=== PATIENT | male | born 1945 | race Caucasian/White ===

== ENCOUNTER → 2021-05-21 | Day surgery (SDC) | payer MEDICARE, OTHER ==
[~2021-05-21] VITALS: Ht 188 cm; Wt 56.8 kg
[~2021-05-21] MED LIST: ONDANSETRON ODT8 MG PO; PANTOPRAZOLE SO40 MG PO; PAROXETINE 10MG10 MG PO
[2021-05-21 10:34] LABS: HCT 48.6 % (42.0-52.0); HGB 17.4 g/dl (13.2-18.0); MCH 31.9 pg (25.0-31.0); MCHC 35.8 g/dL (32.0-36.0); MCV 89.2 fL (78.0-100.0); MPV 9.7 fL (6.0-9.5); RBC 5.45 M/uL (4.70-6.00); WBC 13.7 K/uL (4.0-10.5)
[2021-05-21 11:13] LABS: ALBUMIN 3.6 g/dL (3.4-5.0); BILIRUBIN - TOTAL 0.9 mg/dL (0.2-1.0); BUN/CREAT RATIO (CALC) 24.7 RATIO; CREATININE 0.85 mg/dL (0.67-1.17); TOTAL PROTEIN 6.6 g/dL (6.4-8.2)
== END | disposition home or self-care (01) ==
LOC: FAS 09:33
PROVIDERS: Surgery
DX: K29.50 Unspecified chronic gastritis without bleeding (principal); K21.9 Gastro-esophageal reflux disease without esophagitis; F17.210 Nicotine dependence, cigarettes, uncomplicated; Z88.5 Allergy status to narcotic agent; Z79.899 Other long term (current) drug therapy
CPT/HCPCS: 36415; 80053; J2250; J2704; J7120; Q9967

== ENCOUNTER 2021-07-02 13:08 | Emergency (ER) | payer MEDICARE, OTHER ==
[2021-07-02] MEDS ORDERED: ONDANSETRON HCL4 MG PO (16:48)
[2021-07-02] MEDS ORDERED: PERCOCET 5-3251 EACH PO (16:48)
== END 2021-07-02 17:27 | disposition home or self-care (01) ==
LOC: FER 13:08
DX: S32.019A Unspecified fracture of first lumbar vertebra, initial encounter for closed fracture (principal); F17.210 Nicotine dependence, cigarettes, uncomplicated; W06.XXXA Fall from bed, initial encounter; Y93.89 Activity, other specified
CPT/HCPCS: 72131

== ENCOUNTER 2021-07-19 06:49 | Inpatient (IN) | payer MEDICARE, OTHER ==
[~2021-07-19] VITALS: Ht 188 cm; Wt 59.9 kg
[~2021-07-19 06:49] MED LIST changes: +ONDANSETRON HCL4 MG PO; +PERCOCET 5-3251 EACH PO
[2021-07-19 07:33] LABS: BASOPHIL 0.2 % (0-2); EOSINOPHIL 0 % (0-7); HCT 42.8 % (42.0-52.0); HGB 14.3 g/dl (13.2-18.0); LYMPHOCYTE 3.7 % (15-48); MCH 30.8 pg (25.0-31.0); MCHC 33.4 g/dL (32.0-36.0); MCV 92.2 fL (78.0-100.0); MONOCYTE 2.9 % (0-12); MPV 9.1 fL (6.0-9.5); NRBC 0; PLT 413 K/uL (150-400); RBC 4.64 M/uL (4.70-6.00); RDW 13.2 % (11.5-14.0); WBC 20.3 K/uL (4.0-10.5)
[2021-07-19 07:34] LABS: NEUTROPHIL 92.2 % (41-80)
[2021-07-19 07:39] LABS: INR 0.96 (0.9-1.2); PROTHROMBIN TIME 12.2 SECONDS (11.8-13.4); PTT 33.5 SECONDS (24.4-34.7)
[2021-07-19 07:46] LABS: ALBUMIN 2.8 g/dL (3.4-5.0); BILIRUBIN - TOTAL 0.5 mg/dL (0.2-1.0); BUN/CREAT RATIO (CALC) 20.2 RATIO; CREATININE 0.94 mg/dL (0.67-1.17); GLOBULIN (CALCULATION) 3.2 g/dL; POTASSIUM 4.1 mmol/L (3.5-5.1)
[2021-07-19 07:57] LABS: D-DIMER 11.54 ug/mLFEU (0.00-0.41)
[2021-07-19 08:22] LABS: LACTIC ACID 5.7 mmol/L (0.4-1.9)
[2021-07-19 08:25] LABS: BAND 10 % (0-10); LYMPHOCYTE(M) 6 % (15-48); METAMYELOCYTE 1; MONOCYTE(M) 4 % (0-12); NEUTROPHILS(M) 78 % (41-80); TOTAL CELL COUNT 100
[2021-07-19 08:27] LABS: PLATELET ESTIMATE NORMAL; PLATELET MORPHOLOGY NORMAL
[2021-07-19 08:34] LABS: INFLUENZA A NAA NEGATIVE (NEGATIVE)
[2021-07-19 08:35] LABS: CORONAVIRUS 2019 SARS-COV-2 POSITIVE (NEGATIVE)
[2021-07-19 09:37] LABS: BILIRUBIN NEGATIVE (NEGATIVE); BLOOD NEGATIVE Ery/uL (NEGATIVE); CLARITY CLEAR (CLEAR); COLOR YELLOW (YELLOW); GLUCOSE (U) NORMAL (NORMAL); LEUKOCYTES NEGATIVE Leu/uL (NEGATIVE); NITRITE NEGATIVE (NEGATIVE); PROTEIN NEGATIVE (NEGATIVE); SPECIFIC GRAVITY 1.015 (1.001-1.030); UROBILINOGEN 0.2 mg/dL (0.2-1.0); pH 6.5 (5.0-9.0)
[2021-07-20 06:12] LABS: BASOPHIL 0.1 % (0-2); EOSINOPHIL 0 % (0-7); HCT 35.9 % (42.0-52.0); HGB 11.8 g/dl (13.2-18.0); LYMPHOCYTE 7.8 % (15-48); MCH 30.6 pg (25.0-31.0); MCHC 32.9 g/dL (32.0-36.0); MCV 93.2 fL (78.0-100.0); MONOCYTE 1.9 % (0-12); NEUTROPHIL 88.2 % (41-80); NRBC 0; PLT 299 K/uL (150-400); RBC 3.85 M/uL (4.70-6.00); RDW 13.3 % (11.5-14.0)
[2021-07-20 06:18] LABS: WBC 21.8 K/uL (4.0-10.5)
[2021-07-20 06:35] LABS: ALBUMIN 2.1 g/dL (3.4-5.0); BILIRUBIN - TOTAL 0.4 mg/dL (0.2-1.0); BUN/CREAT RATIO (CALC) 30.8 RATIO; C-REACTIVE PROTEIN 11.5 mg/dL (<=0.90); CREATININE 0.65 mg/dL (0.67-1.17); GLOBULIN (CALCULATION) 2.9 g/dL; MAGNESIUM 1.9 mg/dL (1.8-2.4); POTASSIUM 3.4 mmol/L (3.5-5.1)
[2021-07-21 06:20] LABS: BASOPHIL 0.1 % (0-2); EOSINOPHIL 0 % (0-7); HCT 37.1 % (42.0-52.0); HGB 12.7 g/dl (13.2-18.0); LYMPHOCYTE 7.5 % (15-48); MCH 30.3 pg (25.0-31.0); MCHC 34.2 g/dL (32.0-36.0); MONOCYTE 4.1 % (0-12); MPV 9.4 fL (6.0-9.5); NEUTROPHIL 87.5 % (41-80); NRBC 0; PLT 367 K/uL (150-400); RBC 4.19 M/uL (4.70-6.00); RDW 13.2 % (11.5-14.0); RETICULOCYTE COUNT 0.8 % (1.0-2.0)
[2021-07-21 06:25] LABS: MCV 88.5 fL (78.0-100.0); WBC 23.2 K/uL (4.0-10.5)
[2021-07-21 06:35] LABS: IRON % SATURATION 30.5 %SAT (20-50)
[2021-07-21 07:16] LABS: BUN/CREAT RATIO (CALC) 30.1 RATIO; C-REACTIVE PROTEIN 6.1 mg/dL (<=0.90); CREATININE 0.73 mg/dL (0.67-1.17); FOLIC ACID (SERUM) 4.8 ng/mL (8.6-58.9); PHOSPHORUS 2.1 mg/dL (2.6-4.7); POTASSIUM 3.9 mmol/L (3.5-5.1)
--- NOTE | 2021-07-22 14:36 | NUR ---
07/22/21 Mr. Sousa could not be reached by telephone. Per telephone conversation with nephew, Francis Lisa: Mr. Sousa lives at home with his spouse. His spouse is bedbound. 2 neighbors and and Mr. Sousa' brother assist with care. - Mr. Sousa uses a cane. Mr. Lisa said a walker could not be manuvered in the home due to clutter. - Mr. Lisa chose [facility] for 02 needs and [facility] for [facility]. A referral was made to [facility] via [facility]. [facility] was requested to include a pediatric social worker.
[2021-07-22] MEDS ORDERED: ELIQUIS5 MG PO (14:50)
[2021-07-22] MEDS ORDERED: XARELTO15 MG PO (16:35)
[2021-07-23 06:00] LABS: BASOPHIL 0.1 % (0-2); EOSINOPHIL 0 % (0-7); HCT 34.8 % (42.0-52.0); LYMPHOCYTE 7.3 % (15-48); MCH 30.4 pg (25.0-31.0); MCHC 34.5 g/dL (32.0-36.0); MCV 88.1 fL (78.0-100.0); MONOCYTE 4.9 % (0-12); MPV 9.3 fL (6.0-9.5); NEUTROPHIL 86.9 % (41-80); NRBC 0; PLT 319 K/uL (150-400); RBC 3.95 M/uL (4.70-6.00); RDW 13.2 % (11.5-14.0); WBC 18.7 K/uL (4.0-10.5)
[2021-07-23 07:37] LABS: BUN/CREAT RATIO (CALC) 23.8 RATIO; CREATININE 0.63 mg/dL (0.67-1.17); POTASSIUM 3.3 mmol/L (3.5-5.1)
--- NOTE | 2021-07-23 10:04 | NUR ---
07/23 [employer] co-pay = $482.16 because $466. went to deductible. The further cost is estimated at $15.00. jim Sanford was informed of the cost via voicemail.
--- NOTE | 2021-07-24 01:40 | NUR ---
PHARM: IT LOOKS THOUGH I NEGLECTED TO SCAN PTS 2 NARCS FROM EARLIER IN SHIFT. I FELT CERTAIN I SCANNED THEM THEREFORE I DO NOT WANT TO RECHART & CAUSE ISSUE. LET ME KNOW IF THERE IS SOMETHING MORE I NEED TO DO. I APOLOGIZE FOR ANY PROBLEMS.
--- NOTE | 2021-07-24 07:26 | NUR ---
PASSED THIS ALONG IN REPORT & TO THE CREDIT CLERK'S. PT MUST, MUST BE PUT ON TOILET/BSC. PT IS IMPACTED, WE HAVE BEEN TREATING (MEDS, ENEMAS, ETC.) WITH LITTLE SUCCESS. LOOSE STOOL IS MOVING AROUND IMPACTION. PT HAS BEGUN TO BLEED RECTALLY. ALSO, PT DECLINING COGNITIVELY ; HE ASKED THIS MORNING IF THERE IS ANY WAY HE CAN SEE HIS FAMILY. THIS NURSE ASKED DAYSHIFT TO LOOK INTO GETTING PT SWABBED AGAIN TO SEE IF STILL COVID+. PT NEEDS FAMILIAL INTERACTION (ANY INTERACTION ON REG BASIS) TO PREVENT FURTHER COGNITIVE DECLINE.
--- NOTE | 2021-07-24 13:34 | NUR ---
07/24/21 [facility] was notified of discharge. [facility] delivered 02 at 2L.
[2021-07-24] MEDS ORDERED: MIRALAX17 GM PO (15:55)
[2021-07-24] MEDS ORDERED: PROVENTIL INH (15:55)
[2021-07-24] MEDS ORDERED: CEFDINIR300 MG PO (15:55)
== END 2021-07-24 17:26 | disposition home health service (06) | DRG 871 ==
LOC: FER 06:49 → FMS 10:15
PROVIDERS: Emergency Medicine; Internal Medicine; ADMIT Internal Medicine
PROC: 8E0ZXY6 Isolation (ICD-10-PCS; principal; 2021-07-19)
PROC: 3E0333Z Introduction of Anti-inflammatory into Peripheral Vein, Percutaneous Approach (ICD-10-PCS; 2021-07-19)
PROC: 3E03329 Introduction of Other Anti-infective into Peripheral Vein, Percutaneous Approach (ICD-10-PCS; 2021-07-19)
PROC: XW033E5 Introduction of Remdesivir Anti-infective into Peripheral Vein, Percutaneous Approach, New Technology Group 5 (ICD-10-PCS; 2021-07-20)
DX: A41.89 Other specified sepsis (principal); U07.1 COVID-19; J12.82 Pneumonia due to coronavirus disease 2019; I26.99 Other pulmonary embolism without acute cor pulmonale; J96.01 Acute respiratory failure with hypoxia; J18.0 Bronchopneumonia, unspecified organism; M80.0AXA Age-related osteoporosis with current pathological fracture, other site, initial encounter for fracture; E44.0 Moderate protein-calorie malnutrition; Z68.1 Body mass index [BMI] 19.9 or less, adult; C38.3 Malignant neoplasm of mediastinum, part unspecified; R65.20 Severe sepsis without septic shock; Z66 Do not resuscitate; K56.41 Fecal impaction; D52.9 Folate deficiency anemia, unspecified; Z88.6 Allergy status to analgesic agent; Z91.81 History of falling
CPT/HCPCS: 36415; 36600; 70450; 71045; 71275; 72193; 74018; 80048; 80053; 80202; 81003; 82550; 82607; 82728; 82746; 82803; 83540; 83550; 83605; 83735; 83880; 84100; 84145; 85025; 85379; 85610; 85730; 86140; 87040; 87088; 92526; 93005; 94010; 94640; 94762; 96365; C9399; J1100; J1170; J2543; J3360; J3370; J3480; J7030; J7040; J7050; Q9967; U0002